=== PATIENT | male | born 2000 | race African-American/Black ===

== ENCOUNTER 2022-04-13 19:13 | Emergency (ER) | payer MEDICAID ==
[~2022-04-13] VITALS: Ht 180.3 cm; Wt 72.6 kg
[2022-04-13] MEDS ORDERED: IBUP-2071 PO (20:22)
[2022-04-13 20:26] VITALS: BP 125/60
[2022-04-13] MEDS ORDERED: ACETAMINOPHEN 500 MG TABLET PO ONE (20:30)
== END 2022-04-13 20:33 | disposition home or self-care (01) ==
LOC: EDH 19:13
DX: S46.912A Strain of unspecified muscle, fascia and tendon at shoulder and upper arm level, left arm, initial encounter (principal); X58.XXXA Exposure to other specified factors, initial encounter; Y93.67 Activity, basketball; Y92.310 Basketball court as the place of occurrence of the external cause; Y99.8 Other external cause status
CPT/HCPCS: 73030